=== PATIENT | female | born 1935 | race Caucasian/White ===

== ENCOUNTER 2017-10-31 13:11 | Emergency (ER) | payer MEDICARE ==
[~2017-10-31] VITALS: Ht 160 cm; Wt 74.5 kg
[~2017-10-31 13:11] MED LIST: AMIO200T PO; APIX5TAB PO; ATOR20TA15 PO; ESOM1CAP16 PO; LEVO.1 PO; METO1TAB42 PO; PANT40TA3 PO; POTA10TA2 PO; PRED20 PO; SERT-132 PO; SYNT88TA PO
[2017-10-31 13:19] VITALS: BP 146/71; PULSE 74; RESP 16; TEMP 97.9; O2SAT 97
--- NOTE | 2017-10-31 13:44 | PD ---
HPI Chief Complaint: Edema Time Seen by Provider: 13:33 Travel History International Travel<30 days: No Contact w/Intl Traveler<30days: No Traveled to known affect area: No History of Present Illness HPI Patient is a 82-year-old female presents to emergency room for multiple complaints. 1) patient requesting refill on her levothyroxine 100 mcg tabs once a day. Patient reports that she only has 3 pills left and is unable to see her primary care doctor for refill. 2) patient reports that she has noticed increased swelling to her lower extremities bilaterally over the past 3 weeks. Patient recently drove from [facility] to [place] as she lives in [place] part-time. Patient denies history of DVT or PE, she is currently taking Eliquis as she has history of atrial fibrillation as well as a pacemaker. Patient denies any chest pain or shortness of breath. Patient denies any fever or chills, denies any cough or congestion. Patient with no other complaints at this time. PFSH Past Medical History Hx Anticoagulant Therapy: Yes (coumadin) Arthritis: Yes Atrial Fibrillation: Yes Depression: Yes Cardiovascular Problems: Yes (htn on meds, pacemaker, hx of a-fib) High Cholesterol: Yes GERD: Yes Hypertension: Yes Immunizations Current: Yes Thyroid Disease: Yes ?: Not Social History Alcohol Use: No Tobacco Use: No (NEVER) Substance Use: No Allergies-Medications (Allergen,Severity, Reaction): Coded Allergies: codeine (Verified Allergy, Unknown, 10/31/17) Reported Meds & Prescriptions Reported Meds & Active Scripts Active Synthroid (Levothyroxine Sodium) 100 Mcg Tab 100 Mcg PO DAILY Synthroid (Levothyroxine Sodium) 100 Mcg Tab 100 Mcg PO DAILY Reported Eliquis (Apixaban) 5 Mg Tab 5 Mg PO BID Atorvastatin (Atorvastatin Calcium) 20 Mg Tab 20 Mg PO HS Metoprolol Succinate ER 24 HR (Metoprolol Succinate) 25 Mg Tab 25 Mg PO DAILY Amiodarone (Amiodarone HCl) 200 Mg Tab 200 Mg PO DAILY Sertraline (Sertraline HCl) 50 Mg Tab 50 Mg PO DAILY Pantoprazole (Pantoprazole Sodium) 40 Mg Tab 40 Mg PO DAILY Review of Systems General / Constitutional: No: Fever, Chills Eyes: No: Visual changes HENT: No: Headaches Cardiovascular: No: Chest Pain or Discomfort, Palpitations, Irregular Rhythm, Tachycardia, Diaphoresis, Syncope, Dyspnea on exertion, Edema Respiratory: No: Shortness of Breath Gastrointestinal: No: Abdominal Pain Genitourinary: No: Dysuria Musculoskeletal: Positive: Edema, No: Pain Skin: No Rash Neurologic: No: Weakness Psychiatric: No: Depression Endocrine: No: Polydipsia Hematologic/Lymphatic: No: Easy Bruising Physical Exam Narrative GENERAL: NAD SKIN: Focused skin assessment warm/dry. HEAD: Atraumatic. Normocephalic. EYES: Pupils equal and round. No scleral icterus. No injection or drainage. ENT: No nasal bleeding or discharge. Mucous membranes pink and moist. NECK: Trachea midline. No JVD. CARDIOVASCULAR: Regular rate and rhythm. No murmur appreciated. RESPIRATORY: No accessory muscle use. Clear to auscultation. Breath sounds equal bilaterally. GASTROINTESTINAL: Abdomen soft, non-tender, nondistended. Hepatic and splenic margins not palpable. MUSCULOSKELETAL: No obvious deformities. No clubbing. No cyanosis. +2 pitting edema. NEUROLOGICAL: Awake and alert. No obvious cranial nerve deficits. Motor grossly within normal limits. Normal speech. PSYCHIATRIC: Appropriate mood and affect; insight and judgment normal. Data Data Last Documented VS Vital Signs Date Time Temp Pulse Resp B/P (MAP) Pulse Ox O2 Delivery O2 Flow Rate FiO2 10/31/17 14:03 Room Air 10/31/17 13:19 97.9 74 16 146/71 (96) 97 Orders Orders Us Leg Venous Doppler Bilat (10/31/17 ) [facility] Medical Decision Making Medical Screen Exam Complete: Yes Emergency Medical Condition: Yes Medical Record Reviewed: Yes Interpretation(s) Vital Signs Date Time Temp Pulse Resp B/P (MAP) Pulse Ox O2 Delivery O2 Flow Rate FiO2 10/31/17 13:19 97.9 74 16 146/71 (96) 97 Differential Diagnosis CHF, dvt, medication refill Narrative Course 82-year-old female with only complains of leg swelling for the past 3 weeks as well as requests refill for Synthroid. Patient with no chest pain or shortness of breath at this time, she does have pitting edema to lower extremity bilaterally with recent travel history, discussed need for obtaining ultrasound to rule out dvt. She is taking eliquis for treatment of afib. I will refill her prescription for the levothyroxine -patient understood the importance of following up with primary care doctor for further refills. Lower extremity ultrasound: No evidence of dvt Discussed need for repeat us in 1 week if swelling persist. She will follow up with pcp and will return to ER as needed. Instructed to elevate her legs to help decrease swelling. Diagnosis Primary Impression: Leg edema Additional Impression: Medication refill Patient Instructions: General Instructions Additional Instructions: Please follow up with your primary care doctor in 2-3 days Return to the ER if symptoms worsen or progress Return to the ER as needed Please have your ultrasound repeated in 1 week if swelling persists. Elevate your legs to help decrease swelling Med/Other Pt SpecificInfo: Prescription(s) given Scripts Levothyroxine (Synthroid) 100 Mcg Tab 100 MCG PO DAILY for Thyroid, #30 TAB 0 Refills Prov: Marilyn Villarreal DO 10/31/17 Disposition: 01 DISCHARGE HOME Condition: Stable Marilyn Villarreal DO Oct 31, 2017 13:44
[2017-10-31] MEDS ORDERED: LEVO.1 PO (14:53)
--- NOTE | 2017-10-31 15:40 | RADRPT ---
EXAM DATE/TIME: 10/31/2017 15:01 [facility] COMPARISON: No previous studies available for comparison. INDICATIONS : Edema. MEDICAL HISTORY : Arthritis. Cardiovascular disease. Hypercholesterolemia. GERD. Hypertension. Thyroid disease. Afib . SURGICAL HISTORY : Left ankle fracture repair. ENCOUNTER: Initial ACUITY: 3 weeks PAIN SCORE: 6/10 LOCATION: Bilateral legs. TECHNIQUE: Venous ultrasound of the left and right leg was performed from the inguinal ligament to the proximal calf. Real-time, color Doppler and spectral tracing, compression and augmentation techniques were us ed. FINDINGS: RIGHT LEG: There is normal compressibility of the deep venous system from the inguinal region to the proximal ca lf. No echogenic clot is seen in the lumen of the common femoral, femoral, popliteal, and posterior tibial veins. There is a normal response of the venous system to proximal and distal augmentation an d respiration. LEFT LEG: There is normal compressibility of the deep venous system from the inguinal region to the proximal ca lf. No echogenic clot is seen in the lumen of the common femoral, femoral, popliteal, and posterior tibial veins. There is a normal response of the venous system to proximal and distal augmentation an d respiration. CONCLUSION: No acute disease. Bradley Castillo MD on October 31, 2017 at 15:37 Board Certified Radiologist. This report was verified electronically.
== END 2017-10-31 16:20 | disposition home or self-care (01) ==
LOC: PHED 13:11
DX: R60.0 Localized edema (principal); I48.91 Unspecified atrial fibrillation; M19.90 Unspecified osteoarthritis, unspecified site; F32.9 Major depressive disorder, single episode, unspecified; E78.00 Pure hypercholesterolemia, unspecified; K21.9 Gastro-esophageal reflux disease without esophagitis; I10 Essential (primary) hypertension; E07.9 Disorder of thyroid, unspecified; Z76.0 Encounter for issue of repeat prescription
CPT/HCPCS: 93970; 99284